=== PATIENT | female | born 1985 | race Two or more races ===

== ENCOUNTER 2018-06-17 19:56 | Outpatient (CLI) | payer OTHER | END 2018-06-17 19:57 | disposition EMS.NT | LOC: EMS 19:56 | PROVIDERS: ATTEND Surgery | DX: R07.0 Pain in throat (principal); R07.9 Chest pain, unspecified; R13.10 Dysphagia, unspecified ==

== ENCOUNTER 2018-06-17 21:05 | Emergency (ER) | payer OTHER ==
--- NOTE | 2018-06-17 21:30 | ED Physician Documentation ---
PD HPI CHEST PAIN - Stated complaint Stated Complaint: CP, DRY MOUTH - Chief complaint Chief Complaint: Cardiac - History obtained from History obtained from: Patient - History of Present Illness Timing - onset: How many years ago (1) Timing - onset during: Rest Timing - duration: Hours Timing - details: Abrupt onset, Still present, Waxing and waning Quality: Pressure, Aching Location: Substernal Radiation: Neck. No: Jaw, Back Improved by: Antacids Worsened by: Eating Associated symptoms: Other (dry mouth). No: Shortness of air, Diaphoresis, Nausea, Vomiting, Feeling faint / dizzy, General Weakness, Palpitations, Cough Similar symptoms before: No diagnosis Recently seen: Surgery - Additional information Additional information: 32-year-old female complains of a 1 year history of dry mouth postnasal drip and pain in the central chest with swallowing. She has been into see the ENT and the GI specialist and she apparently does have some esophageal disease as well as cryptic tonsils with tonsilloliths and she has had her tonsils removed recently. Despite removal of tonsils she continues to have similar symptoms. Review of Systems Constitutional: denies: Fever, Chills, Myalgias Eyes: denies: Decreased vision Ears: denies: Ear pain Nose: reports: Congestion, Sinus pressure / pain. denies: Rhinorrhea / runny nose Throat: reports: Sore throat, Other (dry mouth and post nasal drip). denies: Dental pain / toothache Cardiac: reports: Chest pain / pressure. denies: Palpitations, Pedal edema, Calf pain Respiratory: denies: Dyspnea, Cough GI: denies: Abdominal Pain, Nausea, Vomiting : denies: Dysuria, Frequency Skin: denies: Rash Musculoskeletal: reports: Neck pain. denies: Back pain, Extremity pain Neurologic: denies: Generalized weakness, Focal weakness, Numbness PD PAST MEDICAL HISTORY - Past Medical History Past Medical History: No - Past Surgical History Past Surgical History: No - Present Medications Home Medications: Ambulatory Orders Medication Instructions Recorded Confirmed LORazepam [Ativan] 1 mg PO Q6HR PRN #20 tablet 06/18/18 - Allergies Allergies/Adverse Reactions: Allergies Allergy/AdvReac Type Severity Reaction Status Date / Time No Known Drug Allergies Allergy Verified 06/17/18 21:15 - Social History Does the pt smoke?: No Smoking Status: Former smoker Does the pt drink ETOH?: No Does the pt have substance abuse?: No PD ED PE NORMAL - Vitals Vital signs reviewed: Yes (normal ) - General General: Alert and oriented X 3, Well developed/nourished, Other (32 y/o female appears acutely anxious and is hyperventilating. ) - HEENT HEENT: Atraumatic, PERRL, EOMI, Ears normal, Moist mucous membranes, Pharynx benign, Dentition benign - Neck Neck: Supple, no meningeal sign, No bony TTP - Cardiac Cardiac: RRR, No murmur - Respiratory Respiratory: No respiratory distress, Clear bilaterally - Abdomen Abdomen: Soft, Non tender - Back Back: No CVA TTP, No spinal TTP - Derm Derm: Normal color, Warm and dry, No rash - Extremities Extremities: No deformity, No edema - Neuro Neuro: Alert and oriented X 3, surgical brace maker 2-12 intact, No motor deficit, No sensory deficit, Normal speech Eye Opening: Spontaneous Motor: Obeys Commands Verbal: Oriented GCS Score: 15 - Psych Psych: Normal mood, Normal affect Results - Vitals Vitals: Vital Signs - 24 hr 06/17/18 06/17/18 06/17/18 21:10 22:35 23:58 Temperature 36.3 C L Heart Rate 97 72 70 Respiratory 18 18 11 L Rate Blood Pressure 122/52 L 101/70 103/65 O2 Saturation 100 100 99 06/18/18 02:04 Temperature Heart Rate 68 Respiratory 18 Rate Blood Pressure 99/42 L O2 Saturation 100 Oxygen O2 Source Room air - EKG (time done) 2114 Rate: Rate (enter#) (82) Rhythm: NSR Intervals: Prolonged QT (borderline) Compare to prior EKG: Old EKG unavailable Computer interpretation: Agree with computer - Labs Labs: Laboratory Tests 06/17/18 06/17/18 06/17/18 21:21 22:30 22:30 WBC 10.9 H RBC 4.39 Hgb 13.7 Hct 41.1 MCV 93.6 MCH 31.2 H MCHC 33.4 RDW 12.5 Plt Count 264 MPV 7.6 L Neut # (Auto) 6.5 Lymph # (Auto) 3.2 Stark # (Auto) 1.0 Eos # (Auto) 0.1 Baso # (Auto) 0.0 Absolute Nucleated RBC 0.00 Nucleated RBC % 0.0 Sodium 138 Potassium 3.8 Chloride 104 Carbon Dioxide 22 Anion Gap 12.0 BUN 10 Creatinine 0.6 Estimated GFR (MDRD) 116 Glucose 104 H Calcium 9.7 Total Bilirubin 0.4 AST 21 ALT 19 Alkaline Phosphatase 58 Troponin I Total Protein 7.3 Albumin 4.3 Globulin 3.0 Albumin/Globulin Ratio 1.4 Lipase 30 Urine Color YELLOW Urine Clarity CLEAR Urine pH 7.5 Ur Specific [place] <=1.005 Urine Protein NEGATIVE Urine Glucose (UA) NEGATIVE Urine Ketones NEGATIVE Urine Occult Blood NEGATIVE Urine Nitrite NEGATIVE Urine Bilirubin NEGATIVE Urine Urobilinogen 0.2 (NORMAL) Ur Leukocyte Esterase SMALL H Urine RBC None Seen Urine WBC 0-3 Ur Squamous Epith Cells MOD Squamous H Urine Bacteria None Seen Ur Microscopic Review INDICATED Urine Culture Comments NOT INDICATED Urine HCG, Qual NEGATIVE 06/17/18 22:30 WBC RBC Hgb Hct MCV MCH MCHC RDW Plt Count MPV Neut # (Auto) Lymph # (Auto) Stark # (Auto) Eos # (Auto) Baso # (Auto) Absolute Nucleated RBC Nucleated RBC % Sodium Potassium Chloride Carbon Dioxide Anion Gap BUN Creatinine Estimated GFR (MDRD) Glucose Calcium Total Bilirubin AST ALT Alkaline Phosphatase Troponin I < 0.04 Total Protein Albumin Globulin Albumin/Globulin Ratio Lipase Urine Color Urine Clarity Urine pH Ur Specific [place] Urine Protein Urine Glucose (UA) Urine Ketones Urine Occult Blood Urine Nitrite Urine Bilirubin Urine Urobilinogen Ur Leukocyte Esterase Urine RBC Urine WBC Ur Squamous Epith Cells Urine Bacteria Ur Microscopic Review Urine Culture Comments Urine HCG, Qual PD MEDICAL DECISION MAKING - ED course Complexity details: reviewed old records, reviewed results, re-evaluated patient, considered differential, d/w patient ED course: 32-year-old female with a chief complaint of dry mouth difficulty swallowing and chest pain with palpitations presents to the emergency department anxious and crying. She is making tears with her crying and she does indicate to me that she has been evaluated for Sjogren's syndrome with negative blood test. Here in the emergency department her evaluation for chest pain is unremarkable she is very anxious she is administered Ativan with some improvement in her overall symptoms. I thought it important to evaluate her sinuses as she is complaining of some postnasal drip that appears to give her some pain in the back of her throat. This examination was unremarkable as well. I discussed with the patient all the findings from tonight and we will treat her for anxiety and I have asked her to follow-up with her primary care doctor for potential continued treatment of anxiety Departure - Departure Disposition: 01 Home, Self Care Clinical Impression: Anxiety Instructions: ED Panic Attack Follow-Up: CAMERON Kelsey [Provider Group] Prescriptions: LORazepam [Ativan] 1 mg PO Q6HR PRN #20 tablet PRN Reason: anixety Discharge Date/Time: 06/18/18 02:25
--- NOTE | 2018-06-17 22:21 | XRAY Report ---
Reason: central chest pain Procedure Date: 06/17/2018 Accession Number: [id number] / [id number] Procedure: XR - Chest 2 View X-Ray CPT Code: 77498 FULL RESULT: EXAM: CHEST RADIOGRAPHY EXAM DATE: 06/17/2018 09:56 PM. CLINICAL HISTORY: Central chest pain. COMPARISON: None. TECHNIQUE: 2 views. FINDINGS: Lungs/Pleura: No focal opacities evident. No pleural effusion. No pneumothorax. Normal volumes. Mediastinum: Heart and mediastinal contours are unremarkable. Other: None. IMPRESSION: Normal 2-view chest radiography. [facility]
[2018-06-17 22:22] LABS: BILIRUBIN,URINE NEGATIVE (NEGATIVE); GLUCOSE, URINE (UA) NEGATIVE (NEGATIVE); KETONES,URINE (UA) NEGATIVE (NEGATIVE); LEUKOCYTE ESTERASE, URINE SMALL (NEGATIVE); NITRITE,URINE NEGATIVE (NEGATIVE); OCCULT BLOOD,URINE NEGATIVE (NEGATIVE); PH,URINE 7.5 PH (5.0-7.5); PROTEIN,URINE NEGATIVE (NEGATIVE); UROBILINOGEN,URINE 0.2 (NORMAL) E.U./dL (NORMAL)
[2018-06-17 22:23] LABS: CLARITY,URINE CLEAR (CLEAR)
[2018-06-17 22:24] LABS: HCG UR QUAL NEGATIVE
[2018-06-17 22:32] LABS: BACTERIA,URINE None Seen /HPF (None Seen); RBC,URINE None Seen /HPF (0-5); SQUAMOUS EPITHELIAL CELL,UR MOD Squamous (<= Few)
[2018-06-17 22:39] LABS: BASOPHILS % (AUTO) 0.4 %; EOSINOPHILS # (AUTO) 0.1 10^3/uL (0.0-0.7); HGB - HEMOGLOBIN 13.7 g/dL (12.0-16.0); LYMPHOCYTES # (AUTO) 3.2 10^3/uL (1.5-3.5); LYMPHOCYTES % (AUTO) 29.7 %; MEAN CORPUSCULAR HEMOGLOBIN 31.2 pg (27.0-31.0); MEAN CORPUSCULAR HGB CONC 33.4 g/dL (32.0-36.0); MEAN CORPUSCULAR VOLUME 93.6 fL (81.0-99.0); MEAN PLATELET VOLUME 7.6 fL (7.9-10.8); MONOCYTES % (AUTO) 8.9 %; NEUTROPHILS # (AUTO) 6.5 10^3/uL (1.5-6.6); PLT - PLATELET COUNT 264 10^3/uL (130-450); RED BLOOD COUNT 4.39 10^6/uL (4.20-5.40); RED CELL DISTRIBUTION WIDTH 12.5 % (12.0-15.0); WHITE BLOOD COUNT 10.9 x10^3/uL (4.8-10.8)
--- NOTE | 2018-06-17 22:39 | CT Report ---
Reason: chronic post nasal drip Procedure Date: 06/17/2018 Accession Number: [id number] / [id number] Procedure: CT - Sinuses CPT Code: FULL RESULT: EXAM: CT SINUS EXAM DATE: 06/17/2018 10:24 PM. HISTORY: Chronic post nasal drip. COMPARISONS: None. TECHNIQUE: Routine multi-axial CT imaging performed through the sinuses. Iodinated IV contrast: None. Reconstructions: Multiplanar reformats. In accordance with CT protocol optimization, one or more of the following dose reduction techniques were utilized for this exam: automated exposure control, adjustment of mA and/or KV based on patient size, or use of iterative reconstructive technique. FINDINGS: RIGHT Frontal: Normal. Ethmoid: Normal. Maxillary: Normal. Sphenoid: Normal. Drainage Pathways: The frontal recess, ostiomeatal complex and sphenoethmoidal recess are patent and normal. LEFT Frontal: Normal. Ethmoid: Normal. Maxillary: Normal. Sphenoid: Normal. Drainage Pathways: The frontal recess, ostiomeatal complex and sphenoethmoidal recess are patent and normal. Nasal Cavity: Normal. No mass or significant anatomic abnormality evident. Osseous Structures: Unremarkable. Orbits: Unremarkable. Other: Bilateral [place] cells are seen. No Ralph cells are present. IMPRESSION: No CT evidence of sinusitis. [facility]
[2018-06-17 22:50] LABS: ALBUMIN 4.3 g/dL (3.2-5.5); ALBUMIN/GLOBULIN RATIO 1.4 (1.0-2.2); BILIRUBIN,TOTAL 0.4 mg/dL (0.2-1.0); CALCIUM 9.7 mg/dL (8.5-10.3); CREATININE 0.6 mg/dL (0.4-1.0); TOTAL PROTEIN 7.3 g/dL (6.7-8.2)
[2018-06-18] MEDS ORDERED: LORazepam 1 MG TABLET PO STA (01:02)
[2018-06-18 02:05] VITALS: BP 99/42
== END 2018-06-18 02:25 | disposition home or self-care (01) ==
LOC: ED 21:05
DX: F41.9 Anxiety disorder, unspecified (principal); Z87.891 Personal history of nicotine dependence
CPT/HCPCS: 36415; 70486; 71046; 80053; 81001; 81025; 83690; 84484; 85025; 93005; 99283; J8499; 81003; 87086

== ENCOUNTER 2018-06-29 13:30 | Outpatient (CLI) | payer OTHER | END 2018-06-29 13:31 | disposition EMS.NT | LOC: EMS 13:30 | PROVIDERS: ATTEND Surgery | DX: R07.0 Pain in throat (principal); R04.1 Hemorrhage from throat; Z98.890 Other specified postprocedural states ==

== ENCOUNTER 2018-07-05 09:02 | Emergency (ER) | payer OTHER ==
[2018-07-05 09:47] LABS: BILIRUBIN,URINE NEGATIVE (NEGATIVE); GLUCOSE, URINE (UA) NEGATIVE (NEGATIVE); KETONES,URINE (UA) NEGATIVE (NEGATIVE); LEUKOCYTE ESTERASE, URINE NEGATIVE (NEGATIVE); NITRITE,URINE NEGATIVE (NEGATIVE); OCCULT BLOOD,URINE NEGATIVE (NEGATIVE); PH,URINE 7.5 PH (5.0-7.5); PROTEIN,URINE NEGATIVE (NEGATIVE); UROBILINOGEN,URINE 0.2 (NORMAL) E.U./dL (NORMAL)
[2018-07-05 09:53] LABS: CLARITY,URINE CLEAR (CLEAR); HCG UR QUAL NEGATIVE
--- NOTE | 2018-07-05 10:49 | ED Physician Documentation ---
PD HPI ABD PAIN - Stated complaint Stated Complaint: RT SIDE PAIN - Chief complaint Chief Complaint: Abd Pain - History obtained from History obtained from: Patient - History of Present Illness Timing - onset: Today Timing - duration: Hours Timing - details: Abrupt onset, Still present Quality: Sharp, Pain Location: RLQ Radiation: Right flank Improved by: Laying still Worsened by: Moving, Breathing, Position, Palpation Associated symptoms: No: Nausea, Vomiting, Diarrhea, Dysuria Similar symptoms before: Has not had sx before Recently seen: Emergency Dept - Additional information Additional information: 32-year-old female previously well was awoken this morning with right lower quadrant abdominal pain she went to get out of bed had significant pain with any movement she has pain with breathing and with direct palpation. She states the pain does seem to radiate up into her right flank and she did not get any relief of this with a bowel movement. Review of Systems Constitutional: denies: Fever Eyes: denies: Decreased vision Ears: denies: Ear pain Nose: denies: Congestion Throat: denies: Sore throat Cardiac: denies: Chest pain / pressure Respiratory: denies: Dyspnea, Cough GI: reports: Abdominal Pain. denies: Nausea, Vomiting, Constipation, Diarrhea : denies: Dysuria, Frequency Skin: denies: Rash Musculoskeletal: denies: Neck pain, Back pain, Extremity pain PD PAST MEDICAL HISTORY - Past Medical History Past Medical History: No - Past Surgical History Past Surgical History: No - Present Medications Home Medications: Ambulatory Orders Medication Instructions Recorded Confirmed LORazepam [Ativan] 1 mg PO Q6HR PRN #20 tablet 06/18/18 Hydrocodone/Acetaminophen 1 - 2 each PO Q6H PRN #14 tablet 07/05/18 [Hydrocodon-Acetaminophen 5-325] Omeprazole 07/05/18 07/05/18 - Allergies Allergies/Adverse Reactions: Allergies Allergy/AdvReac Type Severity Reaction Status Date / Time No Known Drug Allergies Allergy Verified 07/05/18 09:08 - Social History Does the pt smoke?: No Smoking Status: Never smoker Does the pt drink ETOH?: No Does the pt have substance abuse?: No PD ED PE NORMAL - Vitals Vital signs reviewed: Yes (normal ) - General General: Alert and oriented X 3, Well developed/nourished, Other (appears to be in pain with any movement ) - HEENT HEENT: Atraumatic, PERRL, EOMI - Neck Neck: Supple, no meningeal sign, No bony TTP - Cardiac Cardiac: RRR, No murmur - Respiratory Respiratory: No respiratory distress, Clear bilaterally - Abdomen Abdomen: Soft, Other (RLQ tenderness without referred tenderness. ) - Back Back: No CVA TTP, No spinal TTP - Derm Derm: Normal color, Warm and dry, No rash - Extremities Extremities: No deformity, No edema - Neuro Neuro: Alert and oriented X 3, jacquard loom weaver 2-12 intact, No motor deficit, No sensory deficit, Normal speech Eye Opening: Spontaneous Motor: Obeys Commands Verbal: Oriented GCS Score: 15 - Psych Psych: Normal affect, Other (mood is anxious) Results - Vitals Vitals: Vital Signs - 24 hr 07/05/18 07/05/18 07/05/18 09:07 11:00 15:31 Temperature 36.4 C L Heart Rate 82 65 68 Respiratory 20 14 19 Rate Blood Pressure 101/67 100/78 108/68 O2 Saturation 100 100 100 Oxygen O2 Source Room air - Labs Labs: Laboratory Tests 07/05/18 07/05/18 07/05/18 09:35 11:28 11:28 WBC 9.2 RBC 4.59 Hgb 14.2 Hct 41.8 MCV 91.2 MCH 31.0 MCHC 34.0 RDW 12.8 Plt Count 288 MPV 7.5 L Neut # (Auto) 3.7 Lymph # (Auto) 4.4 H [place] # (Auto) 0.8 Eos # (Auto) 0.2 Baso # (Auto) 0.1 Absolute Nucleated RBC 0.01 Nucleated RBC % 0.1 Sodium 138 Potassium 3.2 L Chloride 102 Carbon Dioxide 24 Anion Gap 12.0 BUN 11 Creatinine 0.5 Estimated GFR (MDRD) 143 Glucose 84 Calcium 9.7 Total Bilirubin 0.4 AST 21 ALT 21 Alkaline Phosphatase 49 Total Protein 7.9 Albumin 4.4 Globulin 3.5 Albumin/Globulin Ratio 1.3 Lipase 35 Urine Color LIGHT YELLOW Urine Clarity CLEAR Urine pH 7.5 Ur Specific [place] 1.010 Urine Protein NEGATIVE Urine Glucose (UA) NEGATIVE Urine Ketones NEGATIVE Urine Occult Blood NEGATIVE Urine Nitrite NEGATIVE Urine Bilirubin NEGATIVE Urine Urobilinogen 0.2 (NORMAL) Ur Leukocyte Esterase NEGATIVE Ur Microscopic Review NOT INDICATED Urine Culture Comments NOT INDICATED Urine HCG, Qual NEGATIVE - Rads (name of study) CT abd/pel without Radiology: Prelim report reviewed (Impression: Limited examination due to absence of intravenous contrast. Hypodense right adnexal mass adjacent to the distal appendix which is not adequately evaluated. If indicated, pelvic ultrasound with transabdominal and transvaginal technique may be helpful. Alternatively, repeat examination with intravenous contrast represents another imaging option.), EMP read indepedently, See rad report U/S pelvis Radiology: Prelim report reviewed (Impression: 1. Normal sonographic appearance of the uterus and endometrium. 2 Enlarged right ovary containing 3.3 cm cystic lesion with a sonographic appearance most likely representing a hemorrhagic cyst. 3 Normal arterial and venous blood flow present within both ovaries.), EMP read indepedently, See rad report Procedures - Bedside sono Bedside sono by EMP: With use of bedside ultrasound the right kidney is imaged it is sonographically nontender there is a question of some mild hydronephrosis. PD MEDICAL DECISION MAKING - ED course Complexity details: reviewed old records, reviewed results, re-evaluated patient, considered differential, d/w patient, d/w family ED course: 32-year-old female with right lower quadrant abdominal pain overnight has significant pain in the right lower quadrant her pain is not well localized and on imaging she appears to have a hemorrhagic ovarian cyst. Her history is not entirely consistent with appendicitis and she has normal white blood cell count. She is diagnosed with hemorrhagic ovarian cyst will provide some pain me dication and to follow-up with PLASTERER APPRENTICE. Departure - Departure Disposition: 01 Home, Self Care Clinical Impression: Hemorrhagic ovarian cyst Condition: Stable Instructions: Cyst Ruptured Ovarian Tx, ED Cyst Ovarian Follow-Up: Sam Sneed ARNP [Primary Care Provider] - Prescriptions: Hydrocodone/Acetaminophen [Hydrocodon-Acetaminophen 5-325] 1 - 2 each PO Q6H PRN #14 tablet PRN Reason: pain
[2018-07-05] MEDS ORDERED: KETOROLAC 30 MG/ML VIAL IVP STA (10:50)
[2018-07-05 11:41] LABS: BASOPHILS # (AUTO) 0.1 10^3/uL (0.0-0.1); BASOPHILS % (AUTO) 0.7 %; EOSINOPHILS # (AUTO) 0.2 10^3/uL (0.0-0.7); EOSINOPHILS % (AUTO) 2.1 %; HGB - HEMOGLOBIN 14.2 g/dL (12.0-16.0); LYMPHOCYTES # (AUTO) 4.4 10^3/uL (1.5-3.5); LYMPHOCYTES % (AUTO) 47.7 %; MEAN CORPUSCULAR VOLUME 91.2 fL (81.0-99.0); MEAN PLATELET VOLUME 7.5 fL (7.9-10.8); MONOCYTES # (AUTO) 0.8 10^3/uL (0.0-1.0); MONOCYTES % (AUTO) 8.9 %; NEUTROPHILS # (AUTO) 3.7 10^3/uL (1.5-6.6); NEUTROPHILS % (AUTO) 40.6 %; PLT - PLATELET COUNT 288 10^3/uL (130-450); RED BLOOD COUNT 4.59 10^6/uL (4.20-5.40); RED CELL DISTRIBUTION WIDTH 12.8 % (12.0-15.0); WHITE BLOOD COUNT 9.2 x10^3/uL (4.8-10.8)
[2018-07-05 11:56] LABS: ALBUMIN 4.4 g/dL (3.2-5.5); ALBUMIN/GLOBULIN RATIO 1.3 (1.0-2.2); BILIRUBIN,TOTAL 0.4 mg/dL (0.2-1.0); CALCIUM 9.7 mg/dL (8.5-10.3); CREATININE 0.5 mg/dL (0.4-1.0); TOTAL PROTEIN 7.9 g/dL (6.7-8.2)
--- NOTE | 2018-07-05 11:57 | CT Report ---
Reason: RLQ pain tendernss Procedure Date: 07/05/2018 Accession Number: [id number] / [id number] Procedure: CT - Abdomen/Pelvis WO CPT Code: FULL RESULT: EXAM: CT ABDOMEN AND PELVIS (CT KUB) EXAM DATE: 07/05/2018 11:40 AM. CLINICAL HISTORY: Right lower quadrant pain tenderness. COMPARISONS: None. TECHNIQUE: Routine axial helical CT imaging was performed through the abdomen and pelvis without IV contrast. Reconstructions: Coronal and sagittal. In accordance with CT protocol optimization, one or more of the following dose reduction techniques were utilized for this exam: automated exposure control, adjustment of mA and/or KV based on patient size, or use of iterative reconstructive technique. FINDINGS: The study is limited by absence of intravenous contrast. Lung Bases: Unremarkable. Right Kidney/Ureter: No stones, hydronephrosis, or hydroureter. No perinephric fat stranding. Left Kidney/Ureter: No stones, hydronephrosis, or hydroureter. No perinephric fat stranding. Other Solid Organs: Noncontrast images of the solid organs are grossly unremarkable. Gallbladder/Bile Ducts: Unremarkable. Peritoneal Cavity: Numerous prominent mesenteric lymph nodes are seen. See images 29 and 30 of coronal series 5. There is no bowel obstruction, free fluid or free air. Pelvic Organs: In the right adnexal region is a relatively hypodense 3.6 x 4.4 cm mass. The appendix is seen coursing from the cecum towards the right adnexal region and can then no longer be on noncontrast examination. The proximal and mid appendix appear normal. Vasculature: Unremarkable. Other: In the right gluteal region is a 1.3 x 1.2 cm phlegmonous-appearing focus in the setting of bilateral subcutaneous heterotopic calcifications in the bryan-gluteal regions. These are possibly injection granulomas. IMPRESSION: Limited examination due to absence of intravenous contrast. Hypodense right adnexal mass adjacent to the distal appendix which is not adequately evaluated. If indicated, pelvic ultrasound with transabdominal and transvaginal technique may help. Alternatively, repeat examination with intravenous contrast represents another imaging option. [facility]
--- NOTE | 2018-07-05 15:09 | Ultrasound Report ---
Reason: RLQ pain Procedure Date: 07/05/2018 Accession Number: [id number] / [id number] Procedure: US - Pelvic w/Transvag+Doppler Ltd CPT Code: FULL RESULT: EXAM: PELVIC ULTRASOUND WITH DOPPLERS CLINICAL HISTORY: Right lower quadrant pain. LMP 06/20/2018. COMPARISON: ABDOMEN/PELVIS W/O 07/05/2018 11:33 AM TECHNIQUE: Realtime transabdominal imaging performed to identify the uterus and adnexa and as an overview of other pelvic structures, followed by transvaginal imaging for better assessment of the endometrium and adnexa, with static image documentation. Color flow imaging and Doppler spectral analysis was performed to evaluate blood flow to the ovaries given pelvic pain and clinical concern for ovarian torsion. FINDINGS: Uterus: 6.8 x 2.8 x 4.3 cm, volume 42.8 cc. Anteverted position. Normal overall size and echotexture. Masses: None. Endometrium: 4-5 mm. Homogeneous echotexture. No increased vascularity. Cervix: Nabothian cyst. Right Ovary: 4 x 2.6 x 3.8 cm, volume 20.7 cc. Normal echotexture. Within the right ovary is a 3.3 x 2.0 x 2.3 cm lesion with internal reticular lacelike appearance. Normal subcentimeter follicles. Arterial and venous blood flow are present. PSV 8.2 cm/sec. RI 0.62. Adnexa are unremarkable. Left Ovary: 3.3 x 1.1 x 2.4 cm, volume 4.6 cc. Normal echotexture. Arterial and venous blood flow are present. PSV 7.2 cm/sec. RI 0.72. Adnexa are unremarkable. Free Fluid: Small to moderate volume of pelvic free fluid. Other: None. IMPRESSION: 1. 1. Normal sonographic appearance of the uterus and endometrium. 2. Enlarged right ovary containing a 3.3 cm cystic lesion with a sonographic appearance most likely representing a hemorrhagic cyst. 3. Normal arterial and venous blood flow present within both ovaries. [facility]
[2018-07-05 15:32] VITALS: BP 108/68
== END 2018-07-05 15:52 | disposition home or self-care (01) ==
LOC: ED 09:02
DX: N83.201 Unspecified ovarian cyst, right side (principal)
CPT/HCPCS: 74176; 76830; 76856; 80053; 81001; 81003; 81025; 83690; 85025; 87086; 93976; 96374; 99283

== ENCOUNTER 2018-09-20 16:12 | Emergency (ER) | payer OTHER ==
[2018-09-20] MEDS ORDERED: BENZOCAINE SPRAY MM STA (16:36)
--- NOTE | 2018-09-20 16:59 | ED Physician Documentation ---
PD HPI URI - Stated complaint Stated Complaint: SORE THROAT/TONSILLECTOMY - Chief complaint Chief Complaint: Heent - History obtained from History obtained from: Patient - History of Present Illness Timing - onset: How many months ago (6) Timing details: Gradual onset, Still present, Constant Associated symptoms: Sore throat. No: Fever, Chills, Ear pain, Nasal congestion, Rhinorrhea, Sinus pain, Swollen nodes, Dry cough, Productive cough, Chest pain, Dyspnea Improves by: Nothing Worsened by: Other (swallowing) Similar symptoms before: Work up / diagnostics (has had a scope, multiple lab tests which she does not know), Treatment (she had a tonsillectomy performed for reported tonsil stones) Recently seen: Not recently seen - Treatment prior to arrival Treatment prior to arrival: multiple sialogogues without relief - Additional information Additional information: she does not know if she was tested for sjogren's disease. Review of Systems Ten Systems: 10 systems reviewed and negative Constitutional: denies: Fever Eyes: reports: Reviewed and negative Ears: reports: Reviewed and negative Nose: reports: Reviewed and negative Throat: reports: Sore throat GI: reports: Reviewed and negative Skin: reports: Reviewed and negative Neurologic: reports: Reviewed and negative Endocrine: reports: Reviewed and negative Immunocompromised: reports: Reviewed and negative PD PAST MEDICAL HISTORY - Past Medical History Past Medical History: Yes Cardiovascular: None Respiratory: None Neuro: None Endocrine/Autoimmune: None GI: None CHIEF CLERK: None : None HEENT: None Psych: Anxiety Musculoskeletal: None Derm: None Other Past Medical History: hx of tonsill stones - Past Surgical History Past Surgical History: Yes /CHIEF CLERK: LEEP (Cervical surgery) - Present Medications Home Medications: Ambulatory Orders Medication Instructions Recorded Confirmed LORazepam [Ativan] 1 mg PO Q6HR PRN #20 tablet 06/18/18 Hydrocodone/Acetaminophen 1 - 2 each PO Q6H PRN #14 tablet 07/05/18 [Hydrocodon-Acetaminophen 5-325] Omeprazole 07/05/18 07/05/18 RX: Cevimeline HCl 30 mg PO TID #30 capsule 09/20/18 - Allergies Allergies/Adverse Reactions: Allergies Allergy/AdvReac Type Severity Reaction Status Date / Time No Known Drug Allergies Allergy Verified 09/20/18 16:25 - Social History Does the pt smoke?: No Smoking Status: Never smoker Does the pt drink ETOH?: Yes Does the pt have substance abuse?: No - Immunizations Immunizations are current?: Yes - POLST Patient has POLST: No PD ED PE NORMAL - Vitals Vital signs reviewed: Yes - General General: Alert and oriented X 3, No acute distress, Well developed/nourished - HEENT HEENT: Atraumatic - Neck Neck: Supple, no meningeal sign - Cardiac Cardiac: RRR - Respiratory Respiratory: No respiratory distress - Abdomen Abdomen: Soft, Non distended - Female Female : Deferred - Rectal Rectal: Deferred - Derm Derm: Normal color, Warm and dry, No rash - Extremities Extremities: No deformity, No edema - Neuro Neuro: Alert and oriented X 3 Eye Opening: Spontaneous Motor: Obeys Commands Verbal: Oriented GCS Score: 15 - Psych Psych: Other (animated, crying) PD ED PE EXPANDED - HEENT HEENT: Atraumatic, Pharyngeal erythema (mild), Other (normal uvula, midline. bilateral conjunctival injection is present ). No: Swollen tonsils, Tonsillar exudate, Soft palate petecchiae, DEVELOPMENT ASSOCIATE Results - Vitals Vitals: Vital Signs - 24 hr 09/20/18 09/20/18 16:23 18:02 Temperature 36.5 C Heart Rate 100 85 Respiratory 19 18 Rate Blood Pressure 117/75 104/69 O2 Saturation 99 100 Oxygen O2 Source Room air PD MEDICAL DECISION MAKING - ED course Complexity details: re-evaluated patient, considered differential, d/w patient ED course: ddx- pharyngitis, sjogrens, sialoladenitis, GERD, zenker's diverticula, sicca syndrome 33 y/o F with chronic dry mouth and sore throat for 6 months despite removal of tonsils for reported tonsil stones. Pt with benign examination and mild erythema in posterior pharynx without signs of acute infection. Pt unsure if she was tested for sjogren's and her PCP is out of town for a few weeks thus will given her a trial of cevimeline as this is relatively low risk and may help pt with her symptoms while awaiting f/u. Departure - Departure Disposition: 01 Home, Self Care Clinical Impression: Chronic sore throat Condition: Stable Record reviewed to determine appropriate education?: Yes Instructions: Sore Throat Follow-Up: Sam Sneed ARNP [Primary Care Provider] - Prescriptions: RX: Cevimeline HCl 30 mg PO TID #30 capsule Discharge Date/Time: 09/20/18 18:03
[2018-09-20 18:02] VITALS: BP 104/69
== END 2018-09-20 18:03 | disposition home or self-care (01) ==
LOC: ED 16:12
DX: J31.2 Chronic pharyngitis (principal); R68.2 Dry mouth, unspecified
CPT/HCPCS: 99282; 99284; A9270

== ENCOUNTER 2018-10-10 19:04 | Emergency (ER) | payer OTHER ==
[2018-10-10 19:14] VITALS: BP 127/91
--- NOTE | 2018-10-10 20:02 | ED Physician Documentation ---
History of Present Illness - Stated complaint Stated Complaint: TIGHTNESS IN THROAT - Chief complaint Chief Complaint: Heent - Additonal information Additional information: This is a 33-year-old female who presents with a persistent feeling of throat discomfort. Patient states that she had her tonsils out over a year ago, since then she has had a feeling that her throat is dry, and sometimes that there is a pressure or mass on her throat, that causes difficulty swallowing. She is able to drink fluids and eat, and states that in fact she has gained weight over the past several months. She had a CT scan done which showed no abnormalities. She also had endoscopy and manometry done which were unremarkable. She is on Prilosec, she states this is has not seemed to help. She presents today because she was frustrated that this problem has been continuing. She denies any shortness of breath, she has not had any wheezing. No fever, no recent change in her symptoms. Review of Systems Constitutional: denies: Fever Throat: reports: Other (+ for tonsillectomy, throat discomfort) Cardiac: denies: Chest pain / pressure Respiratory: denies: Dyspnea GI: denies: Abdominal Pain PD PAST MEDICAL HISTORY - Past Medical History Past Medical History: Yes Cardiovascular: None Respiratory: None Neuro: None Endocrine/Autoimmune: None GI: None SALT GRINDER: None : None HEENT: None Psych: Anxiety Musculoskeletal: None Derm: None - Past Surgical History Past Surgical History: Yes /SALT GRINDER: LEEP (Cervical surgery) - Present Medications Home Medications: Ambulatory Orders Medication Instructions Recorded Confirmed LORazepam [Ativan] 1 mg PO Q6HR PRN #20 tablet 06/18/18 Hydrocodone/Acetaminophen 1 - 2 each PO Q6H PRN #14 tablet 07/05/18 [Hydrocodon-Acetaminophen 5-325] Omeprazole 07/05/18 07/05/18 RX: Cevimeline HCl 30 mg PO TID #30 capsule 09/20/18 RX: Ranitidine HCl [Acid Control] 150 mg PO BID #28 tablet 10/10/18 - Allergies Allergies/Adverse Reactions: Allergies Allergy/AdvReac Type Severity Reaction Status Date / Time No Known Drug Allergies Allergy Verified 10/10/18 19:13 - Social History Does the pt smoke?: No Smoking Status: Never smoker Does the pt drink ETOH?: Yes Does the pt have substance abuse?: No - Immunizations Immunizations are current?: Yes - POLST Patient has POLST: No PD ED PE NORMAL - Vitals Vital signs reviewed: Yes - General General: Alert and oriented X 3, No acute distress - Neck Neck: Supple, no meningeal sign, No bony TTP, No adenopathy, Other (Oropharynx is widely patent, patient has no stridor or wheeze. There are no masses palpated on her anterior posterior neck. She has full range of motion with no obvious discomfort.) - Cardiac Cardiac: RRR - Respiratory Respiratory: Clear bilaterally - Derm Derm: Warm and dry - Extremities Extremities: No deformity - Neuro Neuro: Alert and oriented X 3 Results - Vitals Vitals: Vital Signs - 24 hr 10/10/18 19:12 Temperature 36.1 C L Heart Rate 100 Respiratory 18 Rate Blood Pressure 127/91 H O2 Saturation 100 Oxygen O2 Source Room air - Labs Labs: Laboratory Tests 10/10/18 20:30 TSH 1.63 Free T4 0.94 PD MEDICAL DECISION MAKING - ED course Complexity details: considered differential (Hyperthyroidism, neck mass, esophageal stricture, globus hystericus, GERD) ED course: Patient presents with 1 year of persistent throat discomfort despite work-ups including a CT scan, manometry, and following up with an ENT provider. On examination she is in no acute physical distress, her neck appears normal on my examination, and oropharynx, with no signs of acute inflammation. She has normal range of motion of her neck, no adenopathy or masses that I can palpate. She has had imaging recently within the past several months, as well as the manometry study. Given that she has not had any changes in her status, that she is eating and drinking normally, I explained to her that I do not feel that repeat testing in the emergency department will be of much utility today. She requested thyroid testing, which I felt was reasonable, her TSH and T4 were drawn and these are within normal limits. I recommended that she continue to follow-up with her ENT provider and her primary care provider on this issue. I gave her 1 dose of viscous lidocaine here in hopes of some symptomatic relief, I also prescribed her a course of ranitidine, although given that she is already on a PPI I explained I am unsure if this will provide any further benefit. I discussed return precautions including shortness of breath, inability to swallow liquids, or any other concerning symptoms. Patient agreed and was discharged home Departure - Departure Disposition: Home, Self Care Clinical Impression: Throat discomfort Condition: Good Follow-Up: Sam Sneed ARNP [Primary Care Provider] - Within 1 week Prescriptions: RX: Ranitidine HCl [Acid Control] 150 mg PO BID #28 tablet Comments: You are seen today for 1 year of throat discomfort. I do not see signs of any emergency condition. Please continue to follow-up with your ENT doctor, return to the emergency department if you have trouble breathing, if you are unable to swallow liquids, or you have other new or concerning symptoms. You may trial the ranitidine, discuss this medication with your ENT provider or primary care provider. We will call you if your thyroid tests are abnormal. Discharge Date/Time: 10/10/18 20:57
[2018-10-10] MEDS ORDERED: LIDOCAINE VISCOUS 2% 15 ML UDC MM STA (20:24)
[2018-10-10 21:09] LABS: THYROID STIMULATING HORMONE 1.63 uIU/mL (0.34-5.60)
[2018-10-10 21:11] LABS: FREE T4 (FREE THYROXINE) 0.94 ng/dL (0.58-1.64)
[2018-10-11] MEDS ORDERED: MORPHINE 2 MG/ML CARPUJECT IVP STA (05:48)
== END 2018-10-10 20:57 | disposition home or self-care (01) ==
LOC: ED 19:04
DX: R07.0 Pain in throat (principal)
CPT/HCPCS: 36415; 84439; 84443; 99283; 99284

== ENCOUNTER 2018-10-30 14:13 | Outpatient (CLI) | payer OTHER | END 2018-10-30 14:14 | disposition EMS.NT | LOC: EMS 14:13 | PROVIDERS: ATTEND Surgery | DX: R19.8 Other specified symptoms and signs involving the digestive system and abdomen (principal) ==

== ENCOUNTER 2018-10-30 15:16 | Emergency (ER) | payer OTHER ==
--- NOTE | 2018-10-30 15:31 | ED Physician Documentation ---
History of Present Illness - Stated complaint Stated Complaint: LIGHTHEADED - Chief complaint Chief Complaint: Cardiac - Additonal information Additional information: This is a 33-year-old female which I have met previously, who presents with lightheadedness and chest discomfort. Patient states that she has been getting intermittent chest discomfort for several weeks, and she describes this as over her left lateral lower ribs and also her lower anterior left ribs. She today was going to a optometry appointment, and while she was sitting down she began to feel like she was going to pass out. She did not actually pass out, did not hit her head. She felt slightly nauseated but no vomiting. She denies cough, hemoptysis, or leg swelling. She has had a chronic issue of a feeling of discomfort in the base of her throat which is been worked up with endoscopies and CTs which has been unrevealing. Because she was feeling lightheaded EMS was called who performed an EKG which did not show any obvious abnormalities, she was transported here for further evaluation. She currently is feeling somewhat improved, but continues to be mildly lightheaded. Review of Systems Constitutional: denies: Fever Cardiac: reports: Chest pain / pressure, Palpitations GI: reports: Nausea. denies: Abdominal Pain, Vomiting : denies: Dysuria Neurologic: denies: Syncope Psychiatric: reports: Anxiety Endocrine: denies: Easy bruising / bleeding Immunocompromised: denies: Immunocompromised PD PAST MEDICAL HISTORY - Past Medical History Cardiovascular: None Respiratory: None Neuro: None Endocrine/Autoimmune: None GI: None COMMUNITY HEALTH NAVIGATOR: None : None HEENT: None Psych: Anxiety Musculoskeletal: None Derm: None - Past Surgical History Past Surgical History: Yes /COMMUNITY HEALTH NAVIGATOR: LEEP (Cervical surgery) - Present Medications Home Medications: Ambulatory Orders Medication Instructions Recorded Confirmed LORazepam [Ativan] 1 mg PO Q6HR PRN #20 tablet 06/18/18 Hydrocodone/Acetaminophen 1 - 2 each PO Q6H PRN #14 tablet 07/05/18 [Hydrocodon-Acetaminophen 5-325] Omeprazole 07/05/18 07/05/18 RX: Cevimeline HCl 30 mg PO TID #30 capsule 09/20/18 RX: Ranitidine HCl [Acid Control] 150 mg PO BID #28 tablet 10/10/18 - Allergies Allergies/Adverse Reactions: Allergies Allergy/AdvReac Type Severity Reaction Status Date / Time No Known Drug Allergies Allergy Verified 10/30/18 15:26 - Social History Does the pt smoke?: No Smoking Status: Never smoker Does the pt drink ETOH?: Yes Does the pt have substance abuse?: No - Immunizations Immunizations are current?: Yes - POLST Patient has POLST: No PD ED PE NORMAL - Vitals Vital signs reviewed: Yes - General General: Alert and oriented X 3, No acute distress - HEENT HEENT: Atraumatic, PERRL - Neck Neck: Supple, no meningeal sign - Cardiac Cardiac: RRR, No murmur - Respiratory Respiratory: Clear bilaterally - Abdomen Abdomen: Normal bowel sounds, Soft, Non tender, Non distended - Derm Derm: Warm and dry - Extremities Extremities: No deformity - Neuro Neuro: Alert and oriented X 3, sleeve wheel maker 2-12 intact, No motor deficit, No sensory deficit, Normal speech, Other (Normal narrow based gait without ataxia.) - Psych Psych: Normal mood, Normal affect Results - Vitals Vitals: Vital Signs - 24 hr 10/30/18 10/30/18 15:24 17:25 Temperature 37.1 C 37 C Heart Rate 86 77 Respiratory 20 18 Rate Blood Pressure 121/73 99/63 O2 Saturation 100 100 Oxygen O2 Source Room air - EKG (time done) 15:32 Other comments: Other comments (Rate 82, rhythm sinus, axis is normal. There is no ST segment elevation or depression. QT is borderline prolonged QTC is 470 on my calculation.) - Labs Labs: Laboratory Tests 10/30/18 10/30/18 10/30/18 15:30 15:37 15:37 WBC 13.1 H RBC 4.58 Hgb 14.6 Hct 41.9 MCV 91.5 MCH 31.9 H MCHC 34.8 RDW 11.2 L Plt Count 268 MPV 9.6 Neut # (Auto) 9.6 H Lymph # (Auto) 2.2 [place] # (Auto) 1.1 H Eos # (Auto) 0.1 Baso # (Auto) 0.1 Absolute Nucleated RBC 0.00 Nucleated RBC % 0.0 Sodium 138 Potassium 3.3 L Chloride 105 Carbon Dioxide 21 Anion Gap 12.0 BUN 10 Creatinine 0.6 Estimated GFR (MDRD) 115 Glucose 113 H Calcium 9.6 Total Bilirubin 0.2 AST 31 ALT 25 Alkaline Phosphatase 55 Troponin I High Sens Total Protein 7.8 Albumin 4.5 Globulin 3.3 Albumin/Globulin Ratio 1.4 Lipase 37 Serum HCG, Qual Urine Color LIGHT YELLOW Urine Clarity CLEAR Urine pH 8.0 H Ur Specific [place] <=1.005 Urine Protein NEGATIVE Urine Glucose (UA) NEGATIVE Urine Ketones NEGATIVE Urine Occult Blood LARGE H Urine Nitrite NEGATIVE Urine Bilirubin NEGATIVE Urine Urobilinogen 0.2 (NORMAL) Ur Leukocyte Esterase TRACE H Urine RBC 0-5 Urine WBC 6-10 H Ur Squamous Epith Cells FEW Squamous Urine Bacteria Rare Ur Microscopic Review INDICATED Urine Culture Comments INDICATED 10/30/18 10/30/18 15:37 15:37 WBC RBC Hgb Hct MCV MCH MCHC RDW Plt Count MPV Neut # (Auto) Lymph # (Auto) [place] # (Auto) Eos # (Auto) Baso # (Auto) Absolute Nucleated RBC Nucleated RBC % Sodium Potassium Chloride Carbon Dioxide Anion Gap BUN Creatinine Estimated GFR (MDRD) Glucose Calcium Total Bilirubin AST ALT Alkaline Phosphatase Troponin I High Sens < 2.3 L Total Protein Albumin Globulin Albumin/Globulin Ratio Lipase Serum HCG, Qual NEGATIVE Urine Color Urine Clarity Urine pH Ur Specific [place] Urine Protein Urine Glucose (UA) Urine Ketones Urine Occult Blood Urine Nitrite Urine Bilirubin Urine Urobilinogen Ur Leukocyte Esterase Urine RBC Urine WBC Ur Squamous Epith Cells Urine Bacteria Ur Microscopic Review Urine Culture Comments - Rads (name of study) Chest XR Radiology: Other (Normal 2 view CXR) PD MEDICAL DECISION MAKING - ED course Complexity details: considered differential (Orthostasis, dysrhythmia, ACS, electrolyte abnormality, anemia, vasovagal episode) ED course: On exam patient is well-appearing, vital signs are unremarkable. EKG shows a borderline prolonged QTC at 470, no other signs of dysrhythmia or ischemia. She is placed on desk monitor and throughout the duration of her stay in the emergency department she had no runs of abnormal rhythm that were visualized. I doubt that her borderline prolonged QTC is the cause of her symptoms, given that it is less than 500. Her labs show mild hypokalemia which was replaced orally, otherwise are unremarkable. hCG is negative. High sensitive troponin is negative, given that her symptoms of chest discomfot have been ongoing for greater than 6 hours, And that she has few cardiac risk factors, a single high- sensitivity troponin is sufficient. Her chest x-ray is unremarkable. I highly doubt PE given the combination of her vital signs, the description of her discomfort, its intermittent nature, and complete resolution between episodes. I reevaluated the patient, who states that she is feeling improved, she has been ambulatory without issue, and she is no longer lightheaded. I discussed that I do not know the cause of her lightheadedness/palpitationa from her description it may have been a vasovagal episode, although the inciting event is unclear. I recommended that she follow-up with her primary care provider, and she potassium rich foods. I discussed that her urine is equivocal for infection, given that she does not have convincing symptoms of an UTI. We will let this go to culture and she will be called if it is positive. She will return to the emergency department if she develops any fainting, changing Chest pain, or any other concerning symptoms. Patient agreed with this plan and was discharged home Departure - Departure Disposition: 01 Home, Self Care Clinical Impression: Lightheaded Condition: Good Instructions: ED Chest Pain Atypical Unkn Cause, ED Near Syncope Unkn Follow-Up: Sam Sneed ARNP [Primary Care Provider] - Within 1 week Comments: You were seen today for lightheadedness as well as chest discomfort. We do not see signs of an obvious heart or lung problem today. Your potassium was a little bit low, please eat potassium rich foods over the next several days. It is unclear if you have an urinary tract infection or not from the urinalysis, since you are not having clear symptoms of a UTI, we will hold off on antibiotics and call you if the culture result is positive. Please follow-up with your primary care provider, and return to the emergency department if you have changing or worsening chest pain, trouble breathing, coughing up blood, or fainting, or any other concerning symptoms. Discharge Date/Time: 10/30/18 17:28
[2018-10-30 15:42] LABS: BASOPHILS # (AUTO) 0.1 10^3/uL (0.0-0.1); BASOPHILS % (AUTO) 0.5 %; EOSINOPHILS # (AUTO) 0.1 10^3/uL (0.0-0.7); EOSINOPHILS % (AUTO) 0.8 %; HGB - HEMOGLOBIN 14.6 g/dL (12.0-16.0); LYMPHOCYTES # (AUTO) 2.2 10^3/uL (1.5-3.5); LYMPHOCYTES % (AUTO) 16.5 %; MEAN CORPUSCULAR HEMOGLOBIN 31.9 pg (27.0-31.0); MEAN CORPUSCULAR HGB CONC 34.8 g/dL (32.0-36.0); MEAN CORPUSCULAR VOLUME 91.5 fL (81.0-99.0); MEAN PLATELET VOLUME 9.6 fL (7.9-10.8); MONOCYTES # (AUTO) 1.1 10^3/uL (0.0-1.0); MONOCYTES % (AUTO) 8.7 %; NEUTROPHILS # (AUTO) 9.6 10^3/uL (1.5-6.6); PLT - PLATELET COUNT 268 10^3/uL (130-450); RED BLOOD COUNT 4.58 10^6/uL (4.20-5.40); RED CELL DISTRIBUTION WIDTH 11.2 % (12.0-15.0); WHITE BLOOD COUNT 13.1 x10^3/uL (4.8-10.8)
[2018-10-30 15:44] LABS: BILIRUBIN,URINE NEGATIVE (NEGATIVE); GLUCOSE, URINE (UA) NEGATIVE (NEGATIVE); KETONES,URINE (UA) NEGATIVE (NEGATIVE); LEUKOCYTE ESTERASE, URINE TRACE (NEGATIVE); NITRITE,URINE NEGATIVE (NEGATIVE); OCCULT BLOOD,URINE LARGE (NEGATIVE); PROTEIN,URINE NEGATIVE (NEGATIVE); UROBILINOGEN,URINE 0.2 (NORMAL) E.U./dL (NORMAL)
[2018-10-30 15:47] LABS: CLARITY,URINE CLEAR (CLEAR)
[2018-10-30 15:56] LABS: RBC,URINE 0-5 /HPF (0-5); SQUAMOUS EPITHELIAL CELL,UR FEW Squamous (<= Few)
[2018-10-30 15:57] LABS: BACTERIA,URINE Rare /HPF (None Seen)
[2018-10-30 16:01] LABS: ALBUMIN 4.5 g/dL (3.2-5.5); ALBUMIN/GLOBULIN RATIO 1.4 (1.0-2.2); BILIRUBIN,TOTAL 0.2 mg/dL (0.2-1.0); CALCIUM 9.6 mg/dL (8.5-10.3); CREATININE 0.6 mg/dL (0.4-1.0); TOTAL PROTEIN 7.8 g/dL (6.7-8.2)
[2018-10-30 16:11] LABS: HCG,QUALITATIVE BLOOD NEGATIVE
--- NOTE | 2018-10-30 16:40 | XRAY Report ---
Reason: near syncope, chest discomfort Procedure Date: 10/30/2018 Accession Number: [id number] / [id number] Procedure: XR - Chest 2 View X-Ray CPT Code: 36009 FULL RESULT: EXAM: CHEST RADIOGRAPHY EXAM DATE: 10/30/2018 04:05 PM. CLINICAL HISTORY: Near syncope, chest discomfort. COMPARISON: CHEST 2 VIEW 06/17/2018 9:56 PM. TECHNIQUE: 2 views. FINDINGS: Lungs/Pleura: No focal opacities evident. No pleural effusion. No pneumothorax. Normal volumes. Mediastinum: Heart and mediastinal contours are unremarkable. Other: None. IMPRESSION: No acute intrathoracic plain film abnormality. RADIA
[2018-10-30] MEDS ORDERED: POTASSIUM CHLORIDE 20 MEQ TABLET PO STA (17:15)
[2018-10-30 17:26] VITALS: BP 99/63
== END 2018-10-30 17:28 | disposition home or self-care (01) ==
LOC: EDUNIT# → ED 15:16
DX: R42 Dizziness and giddiness (principal); R07.89 Other chest pain; I45.81 Long QT syndrome; E87.6 Hypokalemia
CPT/HCPCS: 36415; 71046; 80053; 81001; 83690; 84484; 84703; 85025; 87086; 93005; 99284; A9270; 81003

== ENCOUNTER 2020-02-04 14:24 | Emergency (ER) | payer OTHER ==
[2020-02-04] MEDS ORDERED: SODIUM CHLORIDE 0.9% 1,000 ML IV STA (14:49)
[2020-02-04] MEDS ORDERED: ONDANSETRON 4 MG/2 ML VIAL IVP STA (14:49)
[2020-02-04] MEDS ORDERED: MORPHINE 2 MG/ML CARPUJECT IVP STA ×2 (14:49→16:47)
[2020-02-04] MEDS ORDERED: SUCRALFATE 1 GM/10 ML UDC PO STA (15:01)
[2020-02-04] MEDS ORDERED: LIDOCAINE VISCOUS 2% 15 ML UDC MM STA (15:01)
[2020-02-04] MEDS ORDERED: IOVERSOL 320 100 ML VIAL IVP ONE (15:28)
--- NOTE | 2020-02-04 15:44 | ED Physician Documentation ---
PD HPI ABD PAIN - Stated complaint Stated Complaint: ABDOMINAL PX - Chief complaint Chief Complaint: Abd Pain - History obtained from History obtained from: Patient - History of Present Illness Timing - onset: Today Timing - duration: Days (1) Timing - details: Abrupt onset Pain level max: 5 Pain level now: 3 Quality: Aching, Pain Location: Epigastric Associated symptoms: Nausea. No: Fever, Vomiting, Diarrhea, Constipation, Melena, Hematochezia, Dysuria Recently seen: Not recently seen - Additional information Additional information: 34-year-old female states that she has she states it is in her upper abdomen. Nothing makes it better or worse. She states that she has had issues with esophageal motility in the past and had Botox injected into her esophagus for this before. No vomiting. Some nausea. No fevers. No diarrhea or constipation. Review of Systems Ten Systems: 10 systems reviewed and negative Constitutional: denies: Fever, Chills Nose: denies: Rhinorrhea / runny nose, Congestion Respiratory: denies: Cough GI: denies: Nausea, Vomiting, Diarrhea, Hematemesis, Bloody / black stool Skin: denies: Rash Musculoskeletal: denies: Neck pain, Back pain Neurologic: denies: Headache PD PAST MEDICAL HISTORY - Past Medical History Cardiovascular: None Respiratory: None Neuro: None Endocrine/Autoimmune: None GI: None RECYCLING DIRECTOR: None : None HEENT: None Psych: Anxiety Musculoskeletal: None Derm: None - Past Surgical History Past Surgical History: Yes /RECYCLING DIRECTOR: LEEP (Cervical surgery) - Present Medications Home Medications: Ambulatory Orders Medication Instructions Recorded Confirmed LORazepam [Ativan] 1 mg PO Q6HR PRN #20 tablet 06/18/18 Hydrocodone/Acetaminophen 1 - 2 each PO Q6H PRN #14 tablet 07/05/18 [Hydrocodon-Acetaminophen 5-325] Omeprazole 07/05/18 07/05/18 Cevimeline HCl 30 mg PO TID #30 capsule 09/20/18 raNITIdine HCl [Acid Control] 150 mg PO BID #28 tablet 10/10/18 HYDROcod/ACETAM 5/325 [[place] 5/325] 1 - 2 ea PO Q6H PRN #14 tablet 02/04/20 Ondansetron Odt [Zofran] 4 mg TL Q6H PRN #10 tablet 02/04/20 - Allergies Allergies/Adverse Reactions: Allergies Allergy/AdvReac Type Severity Reaction Status Date / Time Penicillins Allergy Hives Verified 02/04/20 14:32 - Social History Does the pt smoke?: No Smoking Status: Never smoker Does the pt drink ETOH?: Yes Does the pt have substance abuse?: No - Immunizations Immunizations are current?: Yes - POLST Patient has POLST: No PD ED PE NORMAL - Vitals Vital signs reviewed: Yes - General General: Alert and oriented X 3, No acute distress - HEENT HEENT: Moist mucous membranes - Neck Neck: Supple, no meningeal sign - Cardiac Cardiac: RRR - Respiratory Respiratory: No respiratory distress, Clear bilaterally - Abdomen Abdomen: Soft, Non tender, Non distended - Derm Derm: Warm and dry - Neuro Neuro: Alert and oriented X 3, factory maintenance manager 2-12 intact, No motor deficit, No sensory deficit, Normal speech - Psych Psych: Normal mood, Normal affect Results - Vitals Vitals: Vital Signs - 24 hr 02/04/20 02/04/20 14:28 18:03 Temperature 36.8 C 36.8 C Heart Rate 88 82 Respiratory 16 16 Rate Blood Pressure 139/62 H 103/67 O2 Saturation 99 99 Oxygen O2 Source Room air - Labs Labs: Laboratory Tests 02/04/20 02/04/20 02/04/20 16:15 16:15 17:48 WBC 9.4 RBC 4.55 Hgb 14.3 Hct 42.8 MCV 94.1 MCH 31.4 H MCHC 33.4 RDW 11.9 L Plt Count 278 MPV 10.3 Neut # (Auto) 5.5 Lymph # (Auto) 3.0 [place] # (Auto) 0.8 Eos # (Auto) 0.1 Baso # (Auto) 0.0 Absolute Nucleated RBC 0.00 Nucleated RBC % 0.0 Sodium 136 Potassium 4.1 Chloride 103 Carbon Dioxide 22 Anion Gap 11.0 BUN 20 Creatinine 0.7 Estimated GFR (MDRD) 96 Glucose 107 H Calcium 9.3 Total Bilirubin 0.5 AST 24 ALT 17 Alkaline Phosphatase 53 Total Protein 7.6 Albumin 4.4 Globulin 3.2 Albumin/Globulin Ratio 1.4 Lipase 34 Urine Color YELLOW Urine Clarity CLEAR Urine pH 7.5 Ur Specific [place] 1.010 Urine Protein NEGATIVE Urine Glucose (UA) NEGATIVE Urine Ketones NEGATIVE Urine Occult Blood NEGATIVE Urine Nitrite NEGATIVE Urine Bilirubin NEGATIVE Urine Urobilinogen 0.2 (NORMAL) Ur Leukocyte Esterase NEGATIVE Ur Microscopic Review NOT INDICATED Urine Culture Comments NOT INDICATED Urine HCG, Qual NEGATIVE - Rads (name of study) RUQ US Radiology: Prelim report reviewed, EMP read contemporaneously, See rad report (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 There is no hydronephrosis. Otherwise normal right upper quadrant abdominal ultrasound. ) CT abd pelvis Radiology: Prelim report reviewed, EMP read contemporaneously, See rad report (No acute abnormality of the abdomen or pelvis. ) PD MEDICAL DECISION MAKING - ED course Complexity details: reviewed results, re-evaluated patient, considered differential, d/w patient ED course: 34-year-old female with what appears to be esophageal spasm. No acute findings on CT scan or sound. No significant lab abnormalities. Pain resolved in the emergency department. She states that she is being followed by a GI specialist in [place] and has had endoscopies and manometry. She states that her pressures are high. She had Botox last 1 month ago We will have her contact her GI doctor tomorrow for further care. May benefit from a calcium channel griselda? Patient counseled regarding signs and symptoms for which I believe and urgent re-evaluation would be necessary. Patient with good understanding of and agreement to plan and is comfortable going home at this time This document was made in part using voice recognition software. While efforts are made to proofread this document, sound alike and grammatical errors may occur. Departure - Departure Disposition: 01 Home, Self Care Clinical Impression: Abdominal pain Qualifiers: Abdominal location: unspecified location Qualified Code(s): R10.9 - Unspecified abdominal pain Condition: Good Instructions: ED Abdominal Pain Unkn Cause Follow-Up: your,doctor in 1 week [Other] Prescriptions: HYDROcod/ACETAM 5/325 [[place] 5/325] 1 - 2 ea PO Q6H PRN #14 tablet PRN Reason: Pain Ondansetron Odt [Zofran] 4 mg TL Q6H PRN #10 tablet PRN Reason: Nausea / Vomiting Comments: The cause of your symptoms is unclear today. Your testing is normal. I would recommend that you follow-up with your doctor for repeat endoscopy. You may need manometry as well for your esophagus to see if there is a motility disorder. Sometimes calcium channel blockers may help this. You may also need Botox again. Do not drink alcohol or drive while on narcotic pain medicine. Note that many narcotic pain relievers also contain tylenol/acetaminophen. Please ensure that your total dose of acetaminophen from all sources does not exceed 3 grams (3000mg) per day. You may constipated on this medication, take a stool softener such as "Colace" twice a day while you are on it. Also recommend a ogeo-ekc-ilbhnoe laxative such as senna or MiraLAX any day that you do not have a bowel movement. If you received narcotic pain medication in the emergency department, do not drive or operate machinery for the next 24 hours.
--- NOTE | 2020-02-04 16:14 | Ultrasound Report ---
PROCEDURE: Abdomen Limited INDICATIONS: Right upper quadrant abdominal pain TECHNIQUE: Real-time focused scanning was performed of the abdomen, with image documentation. COMPARISON: CT abdomen and pelvis 07/05/2018 FINDINGS: Normal hepatic parenchymal echogenicity, echotexture, and contour. No focal hepatic mass. No intrahep atic biliary ductal dilatation. Normal caliber common duct, measuring approximately 2-3 mm at the wild hepatis. Normally distended gallbladder without wall thickening, sludge, gallstone, or pericholecystic fluid d emonstrated. Proximal portions of the pancreas are within normal limits. The right kidney is normal in size with normal cortical thickness. There is an echogenic focus of abo ut 3 mm in diameter in the right kidney in the upper pole region, likely an angiomyolipoma. 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 Ther e is no hydronephrosis. Otherwise normal right upper quadrant abdominal ultrasound. Reviewed by: Vic Nolen MD on 02/04/2020 4:13 PM PST Approved by: Vic Nolen MD on 02/04/2020 4:13 PM PST Station ID: [id number]
[2020-02-04] MEDS: MAG HYDROX/AL HYDROX/SIMETH 30 ML UDC PO STA (16:26)
[2020-02-04 16:34] LABS: BASOPHILS % (AUTO) 0.4 %; EOSINOPHILS # (AUTO) 0.1 10^3/uL (0.0-0.7); EOSINOPHILS % (AUTO) 0.9 %; HGB - HEMOGLOBIN 14.3 g/dL (12.0-16.0); LYMPHOCYTES % (AUTO) 31.8 %; MEAN CORPUSCULAR HEMOGLOBIN 31.4 pg (27.0-31.0); MEAN CORPUSCULAR HGB CONC 33.4 g/dL (32.0-36.0); MEAN CORPUSCULAR VOLUME 94.1 fL (81.0-99.0); MEAN PLATELET VOLUME 10.3 fL (7.9-10.8); MONOCYTES # (AUTO) 0.8 10^3/uL (0.0-1.0); NEUTROPHILS # (AUTO) 5.5 10^3/uL (1.5-6.6); NEUTROPHILS % (AUTO) 58.6 %; PLT - PLATELET COUNT 278 10^3/uL (130-450); RED BLOOD COUNT 4.55 10^6/uL (4.20-5.40); RED CELL DISTRIBUTION WIDTH 11.9 % (12.0-15.0); WHITE BLOOD COUNT 9.4 x10^3/uL (4.8-10.8)
[2020-02-04 16:51] LABS: ALBUMIN 4.4 g/dL (3.2-5.5); ALBUMIN/GLOBULIN RATIO 1.4 (1.0-2.2); BILIRUBIN,TOTAL 0.5 mg/dL (0.2-1.0); CALCIUM 9.3 mg/dL (8.5-10.3); CREATININE 0.7 mg/dL (0.4-1.0); TOTAL PROTEIN 7.6 g/dL (6.7-8.2)
[2020-02-04 17:55] LABS: BILIRUBIN,URINE NEGATIVE (NEGATIVE); GLUCOSE, URINE (UA) NEGATIVE (NEGATIVE); KETONES,URINE (UA) NEGATIVE (NEGATIVE); LEUKOCYTE ESTERASE, URINE NEGATIVE (NEGATIVE); NITRITE,URINE NEGATIVE (NEGATIVE); OCCULT BLOOD,URINE NEGATIVE (NEGATIVE); PH,URINE 7.5 PH (5.0-7.5); PROTEIN,URINE NEGATIVE (NEGATIVE); UROBILINOGEN,URINE 0.2 (NORMAL) E.U./dL (NORMAL)
[2020-02-04 17:58] LABS: CLARITY,URINE CLEAR (CLEAR)
[2020-02-04 18:02] LABS: HCG UR QUAL NEGATIVE
--- NOTE | 2020-02-04 18:34 | CT Report ---
PROCEDURE: Abdomen/Pelvis WO INDICATIONS: abd pain TECHNIQUE: Noncontrast 5 mm thick sections acquired from the diaphragms to the symphysis. 5 mm coronal and sagi ttal reformats were then performed. For radiation dose reduction, the following was used: automated exposure control, adjustment of mA and/or kV according to patient size. COMPARISON: None. FINDINGS: Image quality: Excellent. ABDOMEN: Lung bases: Lung bases are clear. Heart size is normal. Solid organs: Liver and spleen are normal in size. Gallbladder is normal. Pancreas is normal in co ntours. No adrenal nodules. Kidneys are normal in size, without hydronephrosis or nephrolithiasis. Peritoneum and bowel: Unenhanced bowel loops demonstrate normal wall thickness and caliber. No free fluid or air. Nodes and vessels: No retroperitoneal or mesenteric adenopathy by size criteria. Aorta and inferior vena cava are normal in caliber. Miscellaneous: No ventral hernias. PELVIS: Genitourinary: Bladder wall thickness is normal. A previously described right adnexal mass is no lo nger visualized. Miscellaneous: No inguinal hernias or adenopathy. Bones: No suspicious bony lesions. No vertebral body compression fractures. IMPRESSION: No acute abnormality of the abdomen or pelvis. Reviewed by: Florian Shafer on 02/04/2020 6:33 PM [facility] [place] Approved by: Florian Shafer on 02/04/2020 6:33 PM PST Station ID: [id number]
[2020-02-04 18:50] VITALS: BP 101/65
== END 2020-02-04 18:50 | disposition home or self-care (01) ==
LOC: ED 14:24
DX: R10.13 Epigastric pain (principal); R11.0 Nausea; Z87.19 Personal history of other diseases of the digestive system
CPT/HCPCS: 36415; 74176; 76705; 80053; 81003; 81025; 83690; 85025; 96374; 99284; 99285; A9270; Q9967; 81001; 87086